=== PATIENT | female | born 1985 | race Caucasian/White ===

== ENCOUNTER 2018-08-10 08:04 | Emergency (ER) | payer OTHER ==
[~2018-08-10] VITALS: Ht 175.3 cm; Wt 126.5 kg
[~2018-08-10 08:04] MED LIST: NORFLEX100 MG PO
[2018-08-10] MEDS ORDERED: ULTRAM 50MG TAB50 MG PO (09:33)
[2018-08-10] MEDS ORDERED: CLEOCIN HCL150 MG PO (09:33)
[2018-08-10 09:59] VITALS: BP 138/78
== END 2018-08-10 10:02 | disposition home or self-care (01) ==
LOC: M.ERS 08:04
DX: K04.7 Periapical abscess without sinus (principal); R11.2 Nausea with vomiting, unspecified; F17.210 Nicotine dependence, cigarettes, uncomplicated; Z88.0 Allergy status to penicillin; Z88.1 Allergy status to other antibiotic agents; Z88.5 Allergy status to narcotic agent